=== PATIENT | female | born 1965 | race Caucasian/White ===

== ENCOUNTER → 2017-02-13 | Outpatient (CLI) | payer BC, OTHER ==
--- NOTE | 2017-02-15 15:29 | MAM ---
EXAM DESCRIPTION: 3D Screening BILATERAL : Digital Mammography. CLINICAL HISTORY: 51 years Female SCREENING . No complaints.. COMPARISON: 2-D digital screening bilateral studies 01/25/2016 and 12/23/2014. Report from prior examination also reviewed. TECHNIQUE: Bilateral CC and MLO projection full-field images, 3-D tomosynthesis digital mammographic technique. Also bilateral synthesized CC/ MLO full-field images. CAD not utilized. FINDINGS: The breast parenchymal density pattern is: Scattered areas of fibroglandular density. No skin thickening or nipple retraction . Bilateral intramammary lymph nodes. Lateral solitary microcalcifications. No focal, stellate mass or density, focal asymmetry , and no suspicious microcalcifications bilaterally. Stable mammograms compared to prior study, taking into account differences in mammographic technique IMPRESSION: BI-RADS CATEGORY: 2 - BENIGN FINDINGS. FOLLOW UP: Routine digital bilateral screening, one year interval from February 2017. Written communication explaining the IMPRESSION and follow-up, will be mailed to the patient and referring health care provider. According to the [employer], yearly mammograms are recommended starting at age 40 and continuing as long as a woman is in good health. Any breast change noted on a breast self-exam should be reported promptly to the patient's healthcare provider. Breast MRI is recommended for women with an approximately 20-25% or greater lifetime risk of breast cancer, including women with a strong family history of breast or ovarian cancer and women who have been treated for Hodgkin's disease. A negative mammographic report should not delay tissue diagnosis in patients with significant clinical history or physical findings. Extremely dense breast tissue limits the sensitivity of digital mammography. Electronically signed by: Martin Kendrick MD 02/15/2017 3:28 PM [facility]
== END ==
LOC: MAMMO 12:31
PROVIDERS: ATTEND Family Medicine
DX: Z12.31 Encounter for screening mammogram for malignant neoplasm of breast (principal)
CPT/HCPCS: 77063; G0202

== ENCOUNTER → 2018-05-17 | Outpatient (CLI) | payer OTHER ==
--- NOTE | 2018-05-17 16:06 | MAM ---
EXAM DESCRIPTION: 3D Screening BILATERAL : Digital Mammography. CLINICAL HISTORY: 53 years Female SCREENING . No complaints. No personal or family history of breast cancer. Childbirth. Postmenopausal. Currently on HRT. Lifetime risk of developing breast cancer (Tyrer-Cuzick model)(%): 7.5. COMPARISON: Bilateral screening digital breast tomosynthesis 02/13/2017. No prior reports available. TECHNIQUE: Bilateral CC and MLO projection full-field images, digital tomosynthesis mammographic technique. Bilateral digital 2-D full-field MLO images. CAD not available for tomosynthesis or 2-D images. FINDINGS: The breast parenchymal density pattern is: Almost entirely fatty. No skin thickening or nipple retraction. No new focal, stellate mass or density, focal asymmetry , and no suspicious microcalcifications bilaterally. Stable mammograms compared to prior study. IMPRESSION: BI-RADS CATEGORY: 1 - NEGATIVE FOLLOW UP: Routine digital bilateral screening, one year interval from May 2018. Written communication explaining the findings and follow-up, will be mailed to the patient and referring health care provider. According to the [employer], yearly mammograms are recommended starting at age 40 and continuing as long as a woman is in good health. Any breast change noted on a breast self-exam should be reported promptly to the patient's healthcare provider. Breast MRI is recommended for women with an approximately 20-25% or greater lifetime risk of breast cancer, including women with a strong family history of breast or ovarian cancer and women who have been treated for Hodgkin's disease. A negative mammographic report should not delay tissue diagnosis in patients with significant clinical history or physical findings. Extremely dense breast tissue limits the sensitivity of digital mammography. Electronically signed by: Martin Kendrick MD 05/17/2018 4:03 PM CDT
== END ==
LOC: MAMMO 12:00
PROVIDERS: ATTEND Family Medicine
DX: Z12.31 Encounter for screening mammogram for malignant neoplasm of breast (principal)

== ENCOUNTER → 2018-10-08 | Outpatient (CLI) | payer OTHER ==
--- NOTE | 2018-10-08 15:26 | CT ---
EXAM DESCRIPTION: Abdomen w/Contrast: Computed Tomography. CLINICAL HISTORY: MYELOPROLIFERATIVE DISEASE. Thrombocytosis. Evaluate spleen size. COMPARISON: CT scan abdomen without and with IV contrast 12/17/2015. TECHNIQUE: Spiral-axial scans at 5 x 5 mm intervals abdomen through the upper pelvis, after nonionic IV contrast. No oral contrast. Coronal and sagittal 2.0 mm reconstructions. Delayed three-minute, 5 mm scans, liver to the upper pelvis. No adverse reactions. Total Exam DLP: 1877.26 mGy-cm. This exam was performed according to our departmental CT dose-optimization program which includes automated exposure control, adjustment of the mA and/or kV according to patient size and/or use of iterative reconstruction technique; to reduce radiation dose to as low as reasonably achievable (ALARA). FINDINGS: Lung bases and pleura: Negative. Liver, Stomach, Spleen, Adrenal Glands: Spleen measures 10.6 cm craniocaudal, 5.3 cm AP, and 10.4 Cm transverse. Normal enhancement with no focal lesions. No surrounding fatty inflammatory changes or ascites. Stable since the prior study. Possible small sliding gastric hiatal hernia. Adrenal glands negative. Fatty liver and long axis of the right lobe is 22.5 cm; no focal lesions. Pancreas, Gallbladder, Ducts: Surgical clips in the gallbladder fossa with no fluid. No focal lesions with prominent uncinate process, stable since the prior study. No inflammatory changes.. Kidneys: Negative. Proximal ureter is unremarkable. Mesentery: No free air or free fluid; fatty stranding or fascial thickening. Aorta: Unremarkable. Small Bowel: Partially visualized. No distention. Terminal Ileum/Cecum: Located posterior to the right abdominal wall. Appendix not seen. Surgical clip on cecum stable. Colon: Moderate amount of fecal material in the included colonic segments with no distention. Spine: Spondylosis in the included thoracic spine. Minimal spondylosis L5-S1 with mild lumbar dextroscoliosis. No lytic or sclerotic lesions. Abdominal Wall/Back Soft Tissues: Large body habitus. Otherwise negative. IMPRESSION: 1. Spleen stable in size and appearance since prior CT scan in December 2018. No ascites. Fatty enlarged liver also stable. 2. Other organs are unremarkable. Electronically signed by: Martin Kendrick MD 10/08/2018 3:24 PM CDT
== END ==
LOC: CT 09:36
PROVIDERS: ATTEND Internal Medicine Hematology & Oncology
DX: D47.1 Chronic myeloproliferative disease (principal); K76.0 Fatty (change of) liver, not elsewhere classified